=== PATIENT | female | born 1980 | race Caucasian/White ===

== ENCOUNTER 2021-11-24 07:59 | Emergency (ER) | payer OTHER, SELFPAY ==
[2021-11-24 08:05] VITALS: BP 161/94; PULSE 87; RESP 17; TEMP 36.4; O2SAT 98; BMI 38.2
--- NOTE | 2021-11-24 08:34 | CT_ITS ---
STUDY: CT ABDOMEN AND PELVIS WITHOUT CONTRAST REASON FOR EXAM: Female, 41 years old. Left flank pain. History of kidney stones. RADIATION DOSAGE (If Supplied By Facility): CTDIvol = ( 19.25 ) mGy, DLP = ( 986.10 ) mGycm TECHNIQUE: Transaxial images were obtained from the dome of the diaphragm to the symphysis pubis without oral contrast, and without intravenous contrast. Sagittal and coronal images were reconstructed. Individualized dose optimization techniques were used for this CT. COMPARISON: None. FINDINGS: The visualized lung bases are unremarkable. The visualized portions of the heart are within normal limits. Normal liver. Normal gallbladder and extrahepatic biliary system. Normal spleen. Normal pancreas. Normal bilateral adrenal glands. 2.3 mm nonobstructive calculus in the lower pole calyx of the right kidney. Mild degree of a left hydronephrosis viewed to a 2.2 mm calculus in the left renal pelvis. Tiny nonobstructive calculus in the lower pole calyx of the left kidney as well as in the right kidney. Normal visualized stomach. Normal small intestine. Normal colon. The appendix is visualized and appears normal. Normal abdominal aorta. Normal inferior vena cava. Normal retroperitoneum. Normal urinary bladder. Normal abdominal wall. Normal osseous structures. CT/Abdomen/Pelvis without Cont IMPRESSION: 2.2 mm calculus in the left renal pelvis causing a mild degree of left hydronephrosis. Electronically Signed: Rodney Paredes MD at 10:06 [facility] ,
--- NOTE | 2021-11-24 08:36 | EDS_ITS ---
HPI History of Present Illness Chief Complaint: Abd Pain Informant: patient Narrative Narrative: Patient presents with a left back/flank and left lower quadrant pain. She states it started yesterday when she was sitting down. At first she thought she might of twisted herself. But it seemed to get worse. There are times he gets bad and she gets nauseated and almost lightheaded. She states the pain is lower on her back than normal kidney stones for most people but it is typical for her. She has had 3 or prior lithotripsies and stents. The last was about a year and a half or 2 years ago. She has had stones over a centimeter before. She has no history of diverticular disease. She was eating drinking and having normal bowel habits. She does have some nausea now. Nothing specifically makes this better or worse. PFSH [facility] Medical History Kidney stone on left side Home Medications Control 1 tab PO/SL DAILY 11/24/21 [History Last Taken Unknown] cetirizine [Zyrtec] 10 mg PO DAILY 11/24/21 [History Last Taken Unknown] naproxen 500 mg PO BID #20 tab 11/24/21 [Rx Last Taken Unknown] ondansetron 4 mg PO Q8H PRN #10 tab 11/24/21 [Rx Last Taken Unknown] oxycodone-acetaminophen [Percocet] 1 tab PO Q6H PRN 3 Days #12 tab 11/24/21 [Rx Last Taken Unknown] potassium chloride [K-Dur] 20 meq PO DAILY 11/24/21 [History Last Taken Unknown] tamsulosin [Flomax] 0.4 mg PO DAILY #7 cap 11/24/21 [Rx Last Taken Unknown] Allergy/AdvReac Type Severity Reaction Status Date / Time acetaminophen [From Vicodin] AdvReac Nausea Verified 11/24/21 08:02 amoxicillin AdvReac Other Verified 11/24/21 08:02 hydrocodone [From Vicodin] AdvReac Nausea Verified 11/24/21 08:02 Social History Smoking Status: Never smoker ROS ROS ED Constitutional Constitutional ED: Denies chills or fever(s) ENT ENT ED: Denies rhinorrhea Cardiovascular Cardiovascular: Denies chest pain Respiratory/Chest Respiratory/Chest: Denies cough or dyspnea Gastrointestinal Gastrointestinal: Reports abdominal pain and nausea; Denies constipation, diarrhea or vomiting Genitourinary Genitourinary ED: Denies dysuria, hematuria or urinary frequency Musculoskeletal Musculoskeletal: Reports back pain; Denies arthralgias, myalgias or neck pain Integumentary Denies rash Neurologic Neurologic: Denies headache(s) or weakness Endocrine Endocrinology: Denies polydipsia or polyuria Allergic/Immunologic Allergic/Immunologic ED: Denies mouth swelling or urticaria EXAM Physical Exam Const Vital Signs: 11/24/21 08:05 11/24/21 10:12 Temperature 97.5 F L Temperature Source Temporal Pulse Rate 87 77 Respiratory Rate 17 16 Blood Pressure 161/94 H 141/80 H Blood Pressure Mean 116 100 Pulse Ox 98 Oxygen Delivery Method Room Air Room Air Positive well nourished and well developed General Appearance ED: well developed and NAD; Negative for cyanotic or diaphoretic HEENT Reports moist mucous membranes Eyes General Eye ED: Negative for pale conjunctiva or scleral icterus Neck no JVD Chest Wall inspection of chest normal Resp normal respiratory effort and clear to auscultation bilaterally Effort and Inspection: Negative for pain with movement Auscultation: Negative for rales, rhonchi or wheezes Cardio regular rate, regular rhythm and no murmurs GI normal to inspection, nondistended, normoactive bowel sounds GI Narrative: She does have some very mild tenderness toward the left lower quadrant. No rebound or guarding. I see no rashes or vesicles. Palpation: soft Back/Spine no CVA tenderness Back/Spine Narrative: No notable CVA tenderness. Her pain is little bit lower in the lumbar area on the left and one would normally think up with a kidney stone. However, she states this is a normal spot for her to be sore. Extremity normal to inspection General Extremety ED: Negative for edema General Extremity: Negative for edema Neuro oriented x3 Sensorium / Orientation: alert Psych mental status grossly normal Skin no rashes or lesions noted and no wounds MDM MDM MDM Narrative Medical decision making narrative: Patient is rechecked and feeling much better. Nausea is gone. Urinalysis shows red cells but no sign of infection. Electrolytes are normal including renal function. CBC shows minimal elevation of her white count at 12.3 that may be due to stress pain and demargination. There is no fevers. There is no dysuria or sign of infection. I have looked at the CT. She appears to have a proximal left UPJ area stone of just over 4 mm in longitudinal size. I am waiting on the final read. Radiology sees a stone slightly smaller than I did. This should pass in either case. She started to get a little bit of return of pain so I will give her another dose of morphine. We will get her home on medications. She will follow up with her urologist, Dr. Berman. We will give her name for Dr. Duque also. Lab Data Attestation: I reviewed the patient's lab results. Labs: Laboratory Results - last 24 hr 11/24/21 11/24/21 11/24/21 08:55 08:55 08:55 WBC 12.3 H RBC 4.48 Hgb 13.5 Hct 40.6 MCV 90.6 MCH 30.1 MCHC 33.3 RDW Std Deviation 42.9 RDW Coeff of Damien 12.9 Plt Count 334 MPV 8.5 Immature Gran % (Auto) 0.200 Neut % (Auto) 81.3 H Lymph % (Auto) 14.5 L [place] % (Auto) 3.1 Eos % (Auto) 0.7 Baso % (Auto) 0.2 Absolute Neuts (auto) 10.0 H Absolute Lymphs (auto) 1.78 Nucleated RBC % 0 Sodium 137 Potassium 4.1 Chloride 107 Carbon Dioxide 21.0 Anion Gap 9 BUN 9 Creatinine 0.82 Estim Creat Clear Calc 76.39 Est GFR (MDRD) Af Amer 98 Est GFR (MDRD) Non-Af 81 BUN/Creatinine Ratio 11.0 Glucose 97 Calcium 8.8 Urine Color Yellow Urine Clarity Clear Urine pH 5.0 Ur Specific [place] 1.020 Urine Protein 30 H Urine Glucose (UA) Normal Urine Ketones Negative Urine Occult Blood 250 H Urine Nitrite Negative Urine Bilirubin Negative Urine Urobilinogen Normal Ur Leukocyte Esterase Negative Urine RBC 10-25 SEEN Urine WBC 0 SEEN Ur Squamous Epith Cells 0-5 SEEN Urine Bacteria 0 SEEN Urine Mucus 0 SEEN Urine Test Negative Radiography Diagnostic Testing: Clinical Impression(s) from Imaging Studies Abdomen/Pelvis CT 11/24/21 08:34 IMPRESSION: 2.2 mm calculus in the left renal pelvis causing a mild degree of left hydronephrosis. Electronically Signed: Rodney Paredes MD at 10:06 EST , Discharge Plan Triage Chief Complaint: Abd Pain ED Provider: Ashu Weston Dx/Rx/DC Orders Clinical Impression: Calculus of left kidney, Hematuria Instructions: ED Kidney Stone w/ Colic Prescriptions: New oxycodone-acetaminophen [Percocet] 5-325 mg tablet 1 tab PO Q6H PRN (Reason: pain) 3 Days Qty: 12 RF: 0 ondansetron 4 mg tablet,disintegrating 4 mg PO Q8H PRN (Reason: nausea and vomiting) Qty: 10 RF: 0 naproxen 500 MG tablet 500 mg PO BID Qty: 20 RF: 0 tamsulosin [Flomax] 0.4 mg capsule 0.4 mg PO DAILY Qty: 7 RF: 0 No Action cetirizine [Zyrtec] 10 mg Tablet 10 mg PO DAILY RF: 0 potassium chloride [K-Dur] 20 mEq Tablet,Er Particles/Crystals 20 meq PO DAILY RF: 0 Control 1 tab PO/SL DAILY RF: 0 Primary Care Provider: Flora Stapleton Referrals: Gala Duque MD [STAFF PHYSICIAN] - 3-5 Days if not improving Flora Stapleton MD [Primary Care Provider] - Disposition Disposition: Home, Self Care
[2021-11-24 09:01] LABS: Bacteria 0 SEEN /hpf (None Seen); Mucous, Urine 0 SEEN /hpf (<or=2+); White Blood Cells 0 SEEN /hpf (0-5)
[2021-11-24] MEDS: 0.9% Normal Saline 1,000 ML 1000 ML IV (09:03)
[2021-11-24] MEDS: Ondansetron 4 MG/2 ML Vial IV (09:03)
[2021-11-24] MEDS: Ketorolac 15 MG/ML Vial IV (09:03)
[2021-11-24] MEDS: Morphine 4 MG/ML Syringe IV ×2 (09:03→11:13)
[2021-11-24 09:04] LABS: Absolute Lymphocyte Count 1.78 X10^3/uL (0.83-4.51); Basophil# 0.03 X10^3/uL; Basophil% 0.2 % (0-1); Eosinophil# 0.08 X10^3/uL; Eosinophils% 0.7 % (0-5); Hematocrit 40.6 % (37-47); Hemoglobin 13.5 g/dL (12.0-15.0); Lymphocyte # 1.78 X10^3/ul (0.83-4.51); Lymphocyte % 14.5 % (19-41); Mean Corp Hgb Conc 33.3 g/dL (32-36); Mean Corpuscular Hgb 30.1 pg (27.0-32.0); Mean Corpuscular Volume 90.6 fL (81-99); Mean Platelet Vol. 8.5 fl (6.2-12.0); Monocyte# 0.38 X10^3/uL; Monocyte% 3.1 % (0-10); NRBC Flagged by Analyzer 0 % (0-5); Neutrophil # 9.98 X10^3/uL (2.7-7.7); Neutrophil % 81.3 % (47-70); Platelet Count 334 K/mm3 (150-450); RBC Distribution Width CV 12.9 % (11.6-14.6); RBC Distribution Width SD 42.9 fl (35.1-43.9); Red Blood Count 4.48 M/mm3 (4.2-5.4); White Blood Count 12.3 K/mm3 (4.4-11.0)
[2021-11-24 09:07] LABS: Color, Urine Yellow (Yellow); Glucose, Dipstick Normal (Normal); Ketone-Dipstick Negative (Negative); Leukocyte Esterase-Dipstick Negative /ul (Negative); Nitrite-Dipstick Negative (Negative); Occult Blood-Urine 250 /ul (Negative); Protein-Dipstick 30 mg/dl (Negative); Urine Bilirubin Dipstick Negative (Negative); Urine Clarity Clear (Clear); Urine Urobilinogen Normal (Normal)
[2021-11-24 09:14] LABS: Red Blood Cells-Urine 10-25 SEEN /hpf (0-5); Squamous Epithelial Cells - UA 0-5 SEEN /hpf (5-10)
[2021-11-24 09:15] LABS: Internal QC Validated? YES +Cl - CLEAR BKGD; Pregnancy, Urine Negative Negative
[2021-11-24 09:22] LABS: Anion Gap 9 (5-15); BUN 9 mg/dL (7-18); Calcium,Total 8.8 mg/dL (8.5-10.1); Chloride 107 mmol/L (98-107); Creatinine, Serum 0.82 mg/dL (0.55-1.02); EST Glomerular Filtration Rate 81 mL/min (>60); Est Glom Filt Rate - Afr Amer 98 mL/min (>60); Estimated Creatinine Clearance 76.39 ml/min; Glucose 97 mg/dL (74-106); Potassium 4.1 mmol/L (3.5-5.1); Sodium Level 137 mmol/L (136-145)
[2021-11-24 10:12] VITALS: BP 141/80; PULSE 77; RESP 16
[2021-11-24 11:16] VITALS: BP 147/79; PULSE 77; RESP 18
== END 2021-11-24 11:23 | disposition home or self-care (01) ==
PROVIDERS: Emergency Provider Emergency Medicine; PCP Family Medicine; Visit Provider Emergency Medicine
DX: N13.2 Hydronephrosis with renal and ureteral calculous obstruction (principal); Z87.442 Personal history of urinary calculi
CPT/HCPCS: 74176; 80048; 81001; 81025; 85025; 96361; 96374; 96375; 96376; 99283; A4216; J2405